=== PATIENT | male | born 2005 | race Caucasian/White ===

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

== ENCOUNTER 2024-05-13 15:01 | Emergency (ER) | payer OTHER ==
[~2024-05-13] VITALS: Ht 172.7 cm; Wt 87.3 kg
[2024-05-13 15:09] VITALS: BP 114/49; PULSE 71; RESP 18; TEMP 98.6; O2SAT 99
[2024-05-13 15:10] VITALS: BP 114/49; PULSE 71; RESP 18; TEMP 98.6
[2024-05-13] MEDS ORDERED: LIDOCAINE MPF 1% 10 ML ONE (15:29)
[2024-05-13] MEDS: IBUPROFEN 600 MG TAB PO ONE (15:33)
[2024-05-13] MEDS: LIDOCAINE MPF 1% 10 MG/ML VIAL INJ ONE (15:34)
[2024-05-13 15:41] VITALS: O2SAT 99
[2024-05-13] MEDS ORDERED: BACI-418 TP (16:26)
[2024-05-13] MEDS ORDERED: CEPH-588 PO (16:26)
== END 2024-05-13 16:39 | disposition home or self-care (01) ==
LOC: MED 15:01
DX: L60.0 Ingrowing nail (principal); J45.909 Unspecified asthma, uncomplicated; Z79.899 Other long term (current) drug therapy
CPT/HCPCS: 11730; 99284; J2001